=== PATIENT | female | born 1950 | race Caucasian/White ===

== ENCOUNTER 2019-02-04 14:47 | Emergency (ER) | payer MEDICARE, OTHER ==
[~2019-02-04] VITALS: Ht 170.2 cm; Wt 63.6 kg
[2019-02-04 15:04] VITALS: BP 129/59
[2019-02-04] MEDS ORDERED: HYDROcodone/acetaminophen 5mg/325mg tablet PO ONE (16:20)
== END 2019-02-04 17:08 | disposition home or self-care (01) ==
LOC: ER 14:48
DX: S90.31XA Contusion of right foot, initial encounter (principal); W18.09XA Striking against other object with subsequent fall, initial encounter; Y93.89 Activity, other specified; Y92.89 Other specified places as the place of occurrence of the external cause; Y99.9 Unspecified external cause status
CPT/HCPCS: 73610; 73630; 99283

== ENCOUNTER 2025-04-19 10:03 | Outpatient (CLI) | payer MEDICARE, OTHER ==
--- NOTE | 2025-04-20 02:09 | CONSULTATION ---
DATE OF CONSULTATION: 04/19/2025 DICTATING PHYSICIAN: Breanna Jacob M.S., [facility] ASSISTANT MODIFIED BARIUM SWALLOW STUDY REPORT REFERRING PHYSICIAN: Dre Walker DO HISTORY OF PRESENT ILLNESS: The patient is a 75-year-old female and consents to this evaluation. History was obtained from the patient and medical records. The patient reports symptoms of dysphagia, including coughing a lot and choking with a sneeze that follows. She reports that this has been occurring for a couple of years, but has gotten gradually worse over time. She notes that if she ever had to open her mouth to either talk or cough when she was chewing, that it would lead to a choking episode. She has been having an increased amount of phlegm and her comments on her throat clearing and coughing. She notes that she has started taking smaller bites when she is eating. The patient reports medical history of reflux, spinal fusion L4-L5 four years ago, and hysterectomy. CURRENT DIET: In terms of caffeine, the patient has 2 cups of a strong coffee in the morning. She does not utilize tobacco products or drink alcohol. She has bittersweet chocolate chips on an occasional basis. In terms of dairy products, the patient has a protein drink every other day. Her typical breakfast consists of a hard-boiled egg with vital protein powder and blueberries with seeds. She snacks during the day on walnuts and fruits. Her typical lunch is leftovers from the night before. Dinner is at 7:00 p.m. and may be chicken, turkey, or salmon with salad or carrots, and then she sometimes has a vegetable soup. She has a few teaspoons of raw honey in the evening and goes to bed at 10 p.m. The patient notes that she has had to avoid tomatoes and sausage as she finds that these aggravate her symptoms. MEDICATIONS: Estradiol patch once weekly, sertraline 200 mg once daily orally, Synthroid 0.05 once daily orally, ipratropium bromide p.r.n., vitamin B12, Prolia 60 mg twice a year. The patient reports having been prescribed pantoprazole in the past, but having stopped it recently due to research on long-term effects. PARAMETERS: The patient is seated in a lateral 90-degree view and administered the usual protocol of thin and nectar-thick liquids, puree and solid consistencies, as well as self-regulated boluses of thin liquids from a cup. RESULTS: In the oral stage of the swallow, the patient is easily able to transfer the bolus from the anterior to the posterior oral cavity. There does not appear to be any difficulty with strength or range of motion of the tongue. There is a mild oral residue noted at the level of the tongue base following the initial swallow of boluses. In the pharyngeal stage of the swallow, swallow initiation is noted to be delayed to the level of the piriforms for thin and nectar-thick liquids and to the level of the vallecula for puree and solid consistencies. Swallow initiation is triggered by cranial nerve 9 at the level of the faucial arches and so it appears that there is decreased sensation to trigger the cranial nerve response for the initiation of the swallow. The patient also is noted to have a delayed secondary swallow. A neurological reason cannot be ruled out for this delay in swallow initiation at this time due to the patient's strength abilities of her tongue. Tongue base retraction is mildly reduced. Anterior movement of the posterior pharyngeal wall is observed. Elevation of the hyothyroid complex is accomplished with mildly reduced epiglottic inversion, mildly reduced anterior movement of the hyoid, and adequate superior movement of the hyoid. It is noted that the patient has a prevertebral thickening at the level of C6-C7 and that this thickening appears to impact the thick liquid, puree and solid consistencies as it travels through the pharyngeal cavity with a small drop being left at the level of the PES opening due to slow transit at this level. In terms of airway safety, the patient demonstrated with penetration of the 5 mL nectar-thick liquid bolus. ANTERIOR AND POSTERIOR VIEW: In the AP plane, the bolus split symmetrically between the piriform sinuses. There was proximal movement of the bolus to the level of the xiphoid process. IMPRESSION: The patient demonstrates with what appears to be a moderate pharyngoesophageal stage swallowing disorder characterized by delayed swallow initiation to the level of the piriforms for thin and nectar-thick liquid boluses and to the level of the vallecula for puree and solid consistencies. It appears that the cranial nerve 9's ability to initiate the swallow has been impacted and neurological reason cannot be ruled out. The patient also demonstrates with a prevertebral thickening at the area of C6-C7 that impacts the movement of thicker boluses through the pharyngeal cavity. The patient also demonstrates proximal movement of the boluses in the AP view to the level of the xiphoid process. DIAGNOSES: * R13.14, dysphagia, pharyngoesophageal phase. * K21.9, gastroesophageal reflux disease. PATIENT EDUCATION: Immediately following modified barium swallow study, the patient was able to view the results. The patient was able to see how the current status of the swallowing mechanism decreases her ability to swallow normally. She plans to follow up with her doctor regarding her spine. The patient was educated on dietary modifications for laryngopharyngeal reflux disease with written handout provided. RECOMMENDATIONS: * It is recommended that the patient follow the aforementioned dietary modifications for the laryngopharyngeal reflux disease. * Should a neurological cause be the result of the delayed swallow initiation, the patient may be warranted to return for swallowing therapy to target the sensory aspect of the swallow, but this would depend upon the diagnosis that is resulting in the delayed swallow initiation. LONG-TERM GOALS: * The patient will maintain adequate hydration/nutrition with optimum safety and efficiency of swallow function on p.o. intake without overt signs and symptoms of aspiration for the highest possible diet level. FUNCTIONAL ORAL INTAKE: The FOIS was administered to establish and document a change in the functional eating activities of this patient over time. This is a 7-point scale with one indicating no oral intake and totally tube dependent and 7 indicating total oral intake with no restrictions. This patient received a 6, which indicates she has a total oral diet with multiple consistencies without special preparation, but with specific food limitations and precautions. G-CODE: [id number]. Thank you very much for asking me to participate in the care of this kind patient. Should you have any questions regarding this evaluation and recommendations, please do not hesitate to contact me at [phone]. During this examination, 3 minutes and 32 seconds of fluoroscopy time and 11.71 cAK and mGy were utilized. Breanna Jacob M.S., [facility] ASSISTANT TID: [id number] RECEIPT: [id number] DEN[employer]
== END 2025-04-19 23:59 | disposition home or self-care (01) ==
LOC: RAD 10:03
PROVIDERS: ATTEND Family Medicine
DX: R13.14 Dysphagia, pharyngoesophageal phase (principal); K21.9 Gastro-esophageal reflux disease without esophagitis
CPT/HCPCS: 74230